=== PATIENT | male | born 1990 | race Caucasian/White ===

== ENCOUNTER 2017-01-21 20:52 | Emergency (ER) | payer SELFPAY ==
--- NOTE | 2017-01-25 19:49 | ER ---
ADMIT: 01/21/2017 RM/LOC: ER [facility] MR#: [id number] [address] [id number] [place] [address] Emergency Room Report SEX: M AGE: 26 : 1990 DATE: 01/21/2017 ADDENDUM: This patient comes into the ER because he was recently seen for an abscess on the bottom of the foot that was drained. They started him on Bactrim as soon as he took the Bactrim about an hour later, both of his lips started swelling. He has no difficulty breathing and no difficulty swallowing. He was given Benadryl and prednisone in the ER, which did help him. I wrote a prescription for prednisone. He is to take Benadryl over-the- counter, and I did switch his antibiotic to Keflex. Please see my T-sheet. ÁNGEL Sheriff / Yousif Casiano MD / salvadorl JOB #: [id number] CC: Yousif Casiano MD, Attending Physician Kelsey Alatorre MD, Family Physician
== END 2017-01-21 22:25 | disposition home or self-care (01) ==
LOC: ER 20:52
DX: T37.0X5A Adverse effect of sulfonamides, initial encounter (principal); Z88.8 Allergy status to other drugs, medicaments and biological substances; Z79.899 Other long term (current) drug therapy